=== PATIENT | male | born 1960 | race Caucasian/White ===

== ENCOUNTER 2017-01-12 13:33 | Emergency (ER) | payer OTHER ==
[2017-01-12 13:39] VITALS: BP 164/94; PULSE 82; RESP 18; TEMP 98.6; O2SAT 95
--- NOTE | 2017-01-12 13:54 | EDPHY ---
H & P Time Seen by Provider: 01/12/17 13:51 HPI/ROS: CHIEF COMPLAINT: Left toe injury HISTORY OF PRESENT ILLNESS: This patient is a 56 year old male presenting with a left toe injury sustained yesterday evening. He was trimming his toenails with a new pair of nail scissors and went too deep on the 4th toe of left foot. His bleeding stopped fairly quickly, but he has noted continued oozing from the area. He believes he may have cut off part of the toenail and surrounding skin. His last tetanus shot was in 2006, and he is concerned he may need an update of this vaccination. No other trauma or complaints. ROS: No numbness, weakness, excessive bleeding, syncopal episode, other injury. Past Medical/Surgical History: Denies. Social History: Single. Lives in [place]. Smoking Status: Never smoked Physical Exam: Extremity Physical Alert and oriented x3, no acute distress Extremities: 4th left toe, medial aspect of nail partially gone. Skin: Warm and dry, no rash. Neuro: Motor and sensory intact Vascular: Capillary refill brisk distally Constitutional: Initial Vital Signs Temperature (C) 37 C 01/12/17 13:37 Heart Rate 82 01/12/17 13:37 Respiratory Rate 18 01/12/17 13:37 Blood Pressure 164/94 H 01/12/17 13:37 O2 Sat (%) 95 01/12/17 13:37 O2 Delivery Mode Room Air Allergies/Adverse Reactions: No Known Allergies Allergy (Unverified 01/12/17 13:36) Home Medications: Medication Instructions Recorded NK [No Known Home Meds] 01/12/17 Medical Decision Making ED Course/Re-evaluation: 56 year old male presents with partially avulsed left 4th toenail. Last tetanus shot 2006. Plan to administer tetanus shot. Plan to clean, apply antibiotic ointment. Plan to discharge home in good condition. Follow up and return precautions discussed. I suggested he return to his regular toenail clippers. He is comfortable with this plan. - Data Points Medications Given: Discontinued Medications Diphtheria/Tetanus/Acell Pertussis (Boostrix) 0.5 ml IM .ONCE ONE Stop: 01/12/17 14:01 Last Admin: 01/12/17 14:20 Dose: 0.5 ml Departure - Departure Disposition: Home, Routine, Self-Care Clinical Impression: Avulsion of toenail of left foot Condition: Good Instructions: Nail Avulsion (ED) Additional Instructions: 1. Wash the affected area twice daily and keep a clean dry bandage over the toe. 2. Follow up with your primary care provider for continued concerns and evaluation. 3. Return if you develop increased redness, swelling, heat, or discharge from the injured area, or if you develop fever, chills, vomiting, or other worsening of condition. Referrals: UNK,[facility]K [Other] - As per Instructions Sha Al MD [Medical Doctor] - As per Instructions Report Scribed for: Isaura Little Report Scribed by: Ania Morin Date of Report: 01/12/17 Time of Report: 13:54 Physician Review and Approval Statement: 01/12/17 13:54 Portions of this note were transcribed by a medical assembly. I personally performed a history, physical exam, medical decision making, and confirmed accuracy of information the transcribed note.
[2017-01-12] MEDS ORDERED: TDAP ADULT 0.5 ML INJ (BOOSTRIX) IM ONE (14:00)
== END 2017-01-12 14:25 | disposition home or self-care (01) ==
DX: S91.302A Unspecified open wound, left foot, initial encounter (principal); Z23 Encounter for immunization; W26.8XXA Contact with other sharp object(s), not elsewhere classified, initial encounter